=== PATIENT | female | born 1970 | race Caucasian/White ===

== ENCOUNTER → 2019-06-08 | Outpatient (CLI) | payer BC ==
[2019-06-08 14:56] VITALS: BP 173/94; PULSE 76; RESP 16; TEMP 98.1
--- NOTE | 2019-06-08 15:51 | P.HPOB ---
History of Present Illness H&P Date: 06/08/19 Chief Complaint: The patient is here for her routine gynecologic exam and ma mmogram. This is a 49-year-old with an LMP of approximately 2004. The patient is here to establish with this office. She states it is been about 14 years since she had an endometrial ablation and she has been amenorrheic ever since. The patient is without gynecologic complaints and denies any vaginal bleeding or hot flashes. Her last pelvic exam was about 14 years ago. Review of Systems The patient's weight has been stable over the last year. She denies respiratory, cardiac, or G.I. problems. 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 History of Any Multi-Drug Resistant Organisms: None Reported Past Surgical History: Section, Uterine Ablation Additional Past Surgical History / Comment(s): section 4. Endometrial ablation 2004. Past Psychological History: No Psychological Hx Reported Smoking Status: Former smoker Past Alcohol Use History: Occasional (4 or 5 per month) Additional Past Alcohol Use History / Comment(s): Quit smoking in 2014. Past Drug Use History: None Reported Additional History: She has been since 2013 and is not seeing anybody at this time. She works at [employer]. - Past Family History Father Family Medical History: AFIB, CVA/TIA Mother Family Medical History: Hypertension Brother(s) Family Medical History: Hypertension Sister(s) Family Medical History: Hypertension Medications and Allergies Home Medications Medication Instructions Recorded Confirmed Type No Known Home Medications 06/08/19 06/08/19 History Allergies Allergy/AdvReac Type Severity Reaction Status Date / Time Penicillins Allergy Swelling Unverified 06/08/19 14:56 Exam Vital Signs Temp Pulse Resp BP Pulse Ox 06/08/19 14:51 98.1 F 76 16 173/94 99 Intake and Output 06/08/19 06/08/19 06/08/19 06:59 14:59 22:59 Other: Weight 75.75 kg Height 5 feet 2 inches, weight 167 pounds, BMI 30.5. Repeat blood pressure was 160/86. This is a well-developed well-nourished white female who is alert and oriented times 3 in no acute distress. HEENT: Within normal limits. NECK: Supple without mass or thyromegaly. CHEST AND LUNGS: Clear to auscultation. HEART: Regular rate and rhythm. BREASTS: Are without mass or discharge. AXILLARY EXAM: Negative for adenopathy. BACK: Negative for CVA tenderness. ABDOMEN: Soft, nontender, without palpable masses. PELVIC EXAM: Normal external genitalia with minimal atrophy. Cervix and vagina appear normal with minimal atrophy. There is no unusual discharge. There is no evidence of prolapse. The uterus is midposition, nongravid size and nontender. There are no palpable adnexal masses or tenderness. RECTAL EXAM: Rectovaginal exam is negative for mass or tenderness and is negative for occult blood. EXTREMITIES: Nontender. IMPRESSION: 1. 49-year-old perimenopausal female with normal gynecologic exam. 2. The patient has been amenorrheic since her endometrial ablation in 2004. 3. Elevated blood pressure. PLAN: 1. Pap smear was performed. 2. Self breast awareness was discussed with the patient. 3. Screening mammogram will be done today. 4. We had a long discussion regarding her elevated blood pressure. We have discussed the importance of being treated for elevated blood pressure because of her increased risk for other medical problems such as heart attack, stroke, and kidney disease. I have recommended that she establish with a primary care physician as soon as possible and discuss treatment for high blood pressure with that person. Names of primary care physicians in the area were given to the patient. I have also recommended that she check her own blood pressure on a regular basis. I have recommended weight loss and low sodium diet as well. 5. Osteoporosis prevention was discussed. I have stressed the importance of adequate calcium, vitamin D and regular exercise. Recommended amounts of calcium and vitamin D were also discussed. 6. Screening colonoscopy was recommended based on her age. She will look into doing this after she establishes with a primary care physician. 7. I have stressed the importance on coming for gynecologic evaluation on a regular basis as well as yearly mammograms. 8. She was advised to return in one year for her annual well woman exam.
--- NOTE | 2019-06-10 10:42 | MM ---
Reason for exam: screening (asymptomatic). Last mammogram was performed 3 years and 8 months ago. History: Took hormonal contraceptives for 7 years beginning at age 17. Physical Findings: A clinical breast exam by your physician is recommended on an annual basis and results should be correlated with mammographic findings. MG Screening Mammo w CAD Bilateral CC and MLO view(s) were taken. Prior study comparison: October 10, 2015, bilateral MG screening mammo w CAD. March 19, 2007, bilateral screening mammogram w/CAD. No significant changes when compared with prior studies. ASSESSMENT: Benign, BI-RAD 2 RECOMMENDATION: Routine screening mammogram of both breasts in 1 year.
== END | disposition home or self-care (01) ==
LOC: WWCWWP 14:41
PROVIDERS: ATTEND Obstetrics & Gynecology
DX: Z12.31 Encounter for screening mammogram for malignant neoplasm of breast (principal)
CPT/HCPCS: 77067

== ENCOUNTER → 2023-03-25 | Outpatient (CLI) | payer BC ==
[2023-03-25 13:39] VITALS: BP 125/79; PULSE 69; RESP 17; TEMP 97.8
--- NOTE | 2023-03-25 14:06 | P.HPOB ---
History of Present Illness H&P Date: 03/25/23 Chief Complaint: The patient is here for her routine gynecologic exam and ma mmogram. This is a 52-year-old with an LMP of 2004. Patient is status post endometrial ablation and has been amenorrheic ever since. She is not currently sexually active. She is without gynecologic complaints and denies hot flashes or postmenopausal bleeding. Review of Systems She is getting about 13 pounds over the past 3-1/2 years. She denies respiratory, cardiac, or GI problems. 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 History of Any Multi-Drug Resistant Organisms: None Reported Past Surgical History: Section, Uterine Ablation Additional Past Surgical History / Comment(s): section 4. Endometrial ablation 2004. Past Psychological History: No Psychological Hx Reported Smoking Status: Former smoker Past Alcohol Use History: Occasional (0-4 drinks per month.) Additional Past Alcohol Use History / Comment(s): Quit smoking in 2014. Past Drug Use History: None Reported Additional History: She has been since 2013. She is not sexually active at this time. She works at [employer] and also works part-time at the [employer]. - Past Family History Father Family Medical History: AFIB, CVA/TIA Mother Family Medical History: Hypertension Brother(s) Family Medical History: Hypertension Sister(s) Family Medical History: Hypertension Medications and Allergies Home Medications Medication Instructions Recorded Confirmed Type No Known Home Medications 06/08/19 03/25/23 History Allergies Allergy/AdvReac Type Severity Reaction Status Date / Time Penicillins Allergy Swelling Unverified 03/25/23 13:31 Exam Vital Signs Temp Pulse Resp BP Pulse Ox 03/25/23 13:32 97.8 F 69 17 125/79 97 Intake and Output 03/24/23 03/25/23 03/25/23 22:59 06:59 14:59 Other: Weight 81.647 kg Height 5 foot 1 inch, weight 180 pounds, BMI 34.0. This is a well-developed well-nourished white female who is alert and oriented times 3 in no acute distress. HEENT: Within normal limits. NECK: Supple without mass or thyromegaly. CHEST AND LUNGS: Clear to auscultation. HEART: Regular rate and rhythm. BREASTS: Are without mass or discharge. AXILLARY EXAM: Negative for adenopathy. BACK: Negative for CVA tenderness. ABDOMEN: Soft, nontender, without palpable masses. PELVIC EXAM: Normal external genitalia with mild atrophy. Cervix and vagina appear normal with mild atrophy. There is no unusual discharge. There is no evidence of prolapse. The uterus is midposition, nongravid size and nontender. There are no palpable adnexal masses or tenderness. RECTAL EXAM: Rectovaginal exam is negative for mass or tenderness and is negative for occult blood. EXTREMITIES: Nontender. IMPRESSION: 1. 52-year-old perimenopausal female who is status post endometrial ablation followed by secondary amenorrhea, with normal gynecologic exam. PLAN: 1. Pap smear cotest was performed. 2. Self breast awareness was discussed with the patient. We have also discussed symptoms associated with inflammatory breast cancer. 3. Screening mammogram will be done today. 4. Osteoporosis prevention was discussed. I have stressed the importance of adequate calcium, vitamin D and regular exercise. Recommended amounts of calcium and vitamin D were also discussed. 5. I have recommended screening colonoscopy since she has never had this done. She states her PCP also suggested this and was given an order for this. 6. She was advised to return in one year for her annual well woman exam.
--- NOTE | 2023-03-26 09:00 | MM ---
Reason for Exam: Screening (asymptomatic). Last mammogram was performed 3 year(s) and 9 month(s) ago. Patient History: Menarche at age 10. First Full-Term at age 27. Postmenopausal. Patient has history of breast feeding. Hormonal Contraceptives for 7 years from age 17 until age 24. Risk Values: Divina 5 year model risk: 1.3%. NCI Lifetime model risk: 9.3%. Prior Study Comparison: 03/19/2007 Bilateral Screening Mammogram, [facility]. 10/10/2015 Bilateral Screening Mammogram, [facility]. 06/08/2019 Bilateral Screening Mammogram, [facility]. Tissue Density: There are scattered fibroglandular densities. Findings: Analyzed By CAD. There is no suspicious group of microcalcifications or new suspicious mass in either breast. Overall Assessment: Negative, BI-RAD 1 Management: Screening Mammogram of both breasts in 1 year. . Patient should continue monthly self-breast exams. A clinical breast exam by your physician is recommended on an annual basis. This exam should not preclude additional follow-up of suspicious palpable abnormalities. Note on Divina scores and lifetime risk: 1. A Divina score greater than 3% is considered moderate risk. If this is the case, consider specialist referral to assess eligibility for a risk reducing agent. 2. If overall lifetime risk for the development of breast cancer is 20% or higher, the patient may qualify for future screening with alternating mammogram and breast MRI. Electronically signed and approved by: Mikel Hill M.D. Radiologis
== END ==
LOC: WWCWWP 13:07
PROVIDERS: ATTEND Obstetrics & Gynecology
DX: Z12.31 Encounter for screening mammogram for malignant neoplasm of breast (principal); N99.85 Post endometrial ablation syndrome; N91.1 Secondary amenorrhea; Z78.0 Asymptomatic menopausal state; Z87.891 Personal history of nicotine dependence; Z88.0 Allergy status to penicillin
CPT/HCPCS: 77063; 77067

== ENCOUNTER → 2023-07-09 | Outpatient (CLI) | payer BC ==
[2023-07-09 11:03] LABS: HCT 39.9 % (37.2-46.3); HGB 13.1 g/dL (12.0-15.0); MCHC 32.8 g/dL (32.0-37.0); MCV 88.3 FL (80.0-97.0); Mean Platelet Volume 11.1 FL (9.5-12.2); NRBC Per 100 WBC 0 X 10*3/uL (0.00-0.01); Platelet Count 340 X 10*3/uL (140-440); RBC 4.52 X 10*6/uL (4.10-5.20); RDW 13.4 % (11.5-14.5); WBC 8.88 X 10*3/uL (4.50-10.00)
[2023-07-09 11:27] LABS: ALT 20 U/L (8-44); AST 16 U/L (13-35); Albumin 4.4 g/dL (3.8-4.9); Albumin/Globulin Ratio 1.52 Ratio (1.60-3.17); Alkaline Phosphatase 80 U/L (41-126); BUN/Creat Ratio 21.78 Ratio (12.00-20.00); Blood Urea Nitrogen 19.6 mg/dL (9.0-27.0); Calcium 9.6 mg/dL (8.7-10.3); Chloride 100 mmol/L (96-109); Chol/HDL Ratio 4.28 Ratio; Globulin 2.9 g/dL (1.6-3.3); Glucose 94 mg/dL (70-110); LDL Cholesterol,Calculated 141.4 mg/dL (0.0-131.0); Sodium 138 mmol/L (135-145); Total Bilirubin 0.4 mg/dL (0.3-1.2); Total Protein 7.3 g/dL (6.2-8.2)
== END | disposition home or self-care (01) ==
LOC: LABWHC1 07:13
PROVIDERS: ATTEND Family Medicine
DX: Z00.00 Encounter for general adult medical examination without abnormal findings (principal)
CPT/HCPCS: 36415; 80053; 80061; 85027

== ENCOUNTER 2023-10-31 11:45 | Day surgery (SDC) | payer BC ==
[2023-10-31] MEDS: LACTATED RINGERS 1,000 ML IV SCH (12:16)
[2023-10-31 12:27] VITALS: TEMP 97
[2023-10-31] MEDS ORDERED: PROPOFOL 10 MG/ML 20 ML VIAL IV ONE (12:31)
--- NOTE | 2023-10-31 12:43 | P.PCN ---
Date of Procedure: 10/31/23 Procedure(s) Performed: BRIEF HISTORY: Patient is a 53-year-old pleasant white female scheduled for an elective colonoscopy as a part of screening for colon cancer. PROCEDURE PERFORMED: Colonoscopy. PREOPERATIVE DIAGNOSIS: Screening for colon cancer. IV sedation per Anesthesia. PROCEDURE: After informed consent was obtained, the patient, was brought into the endoscopy unit. IV sedation was administered by Anesthesia under continuous monitoring. Digital rectal examination was normal. Initially the Olympus CF-160 flexible video colonoscope was then inserted in the rectum, gradually advanced into the cecum without any difficulty. Careful examination was performed as the scope was gradually being withdrawn. Ileocecal valve and the appendiceal orifice were visualized and appeared normal. Prep was excellent. Mucosa of the cecum, ascending colon, transverse colon, descending colon, sigmoid colon, and rectum appeared normal. Retroflexion was performed in the rectum and no lesions were seen. The patient tolerated the procedure well. IMPRESSION: Normal-appearing colon from rectum to cecum no evidence of colorectal neoplasia. RECOMMENDATIONS: Findings of this examination were discussed with the patient as well as her family. She was advised to have repeat screening colonoscopy in 10 years for.
[2023-10-31 13:20] VITALS: BP 99/64; PULSE 68
[2023-10-31 13:21] VITALS: RESP 17
== END 2023-10-31 13:25 | disposition home or self-care (01) ==
LOC: ORWHC2ENDO 11:45
PROVIDERS: ATTEND Internal Medicine Gastroenterology
DX: Z12.11 Encounter for screening for malignant neoplasm of colon (principal)
CPT/HCPCS: 45378; J2704

== ENCOUNTER → 2024-05-07 | Outpatient (CLI) | payer BC ==
--- NOTE | 2024-05-10 13:24 | MM ---
Reason for Exam: Screening (asymptomatic). Last mammogram was performed 1 year(s) and 2 month(s) ago. Patient History: Menarche at age 10. First Full-Term at age 27. Postmenopausal. Patient has history of breast feeding. Hormonal Contraceptives for 7 years from age 17 until age 24. Risk Values: Divina 5 year model risk: 1.4%. NCI Lifetime model risk: 8.9%. Prior Study Comparison: 10/10/2015 Bilateral Screening Mammogram, [facility]. 06/08/2019 Bilateral Screening Mammogram, [facility]. 03/25/2023 Bilateral MG 3D screening mammo w/cad, [facility]. Tissue Density: There are scattered areas of fibroglandular density. Findings: Analyzed By CAD. Right breast: There is no suspicious group of microcalcifications or new suspicious mass. Left breast: There is no suspicious group of microcalcifications or new suspicious mass. Overall Assessment: Negative, BI-RAD 1 Management: Screening Mammogram of both breasts in [address] [facility] will attempt to contact patient to return for supplemental views and ultrasound if indicated. Patient should continue monthly self-breast exams. A clinical breast exam by your physician is recommended on an annual basis. This exam should not preclude additional follow-up of suspicious palpable abnormalities. Note on Divina scores and lifetime risk: 1. A Divina score greater than 3% is considered moderate risk. If this is the case, consider specialist referral to assess eligibility for a risk reducing agent. 2. If overall lifetime risk for the development of breast cancer is 20% or higher, the patient may qualify for future screening with alternating mammogram and breast MRI. [facility], , 05/10/2024 1:21 PM. Electronically signed and approved by: Kody Huerta DO
== END | disposition home or self-care (01) ==
LOC: RADMAMWWP 12:00
PROVIDERS: ATTEND Family Medicine
DX: Z12.31 Encounter for screening mammogram for malignant neoplasm of breast (principal); Z78.0 Asymptomatic menopausal state; R92.323 Mammographic fibroglandular density, bilateral breasts
CPT/HCPCS: 77063; 77067